=== PATIENT | male | born 1995 | race Caucasian/White ===

== ENCOUNTER 2016-12-28 10:57 | Emergency (ER) | payer OTHER ==
[~2016-12-28] VITALS: Ht 177.8 cm; Wt 74.7 kg
[2016-12-28 11:00] VITALS: TEMP 36.9; Ht 177.8 cm; Wt 74.7 kg
[2016-12-28] MEDS ORDERED: IBUP-103 PO (11:13)
--- NOTE | 2016-12-28 11:38 | DIAGNOSTIC IMAGING REPORT ---
R HAND MIN 3 VIEWS ROUTINE CLINICAL HISTORY: R hand injury trauma. Pain. COMPARISON: None. DISCUSSION: Nondisplaced fracture distal aspect of the hamate. Mild soft tissue edema. No additional acute bony abnormality. IMPRESSION: Nondisplaced cortical fracture distal hamate. The above report was generated using voice recognition software. It may contain grammatical, syntax or spelling errors. Electronically signed by: Kenny Darling M.D. 12/28/2016 11:37 AM Dictated Date/Time: 12/28/2016 11:34 AM
[2016-12-28 12:08] VITALS: BP 132/77; PULSE 58; O2SAT 97
--- NOTE | 2016-12-28 18:53 | EMERGENCY ROOM VISIT NOTE ---
History First contact with patient: 11:03 Chief Complaint: HAND PAIN/INJURY Stated Complaint: SWELLING/THROBBING IN RIGHT HAND History of Present Illness The patient is a 21 year old male who presents to the Emergency Room with complaints of swelling and pain of the right hand after punching a door 3 nights ago. The patient elected to come to the emergency department to rule out fracture. He rates his discomfort a 4 out of 10, and is right-hand- dominant. He currently denies any pain extending into the wrist or forearm. Review of Systems 10 system review was performed and was negative except for pertinent positives and negatives as indicated in history of present illness Past Medical/Surgical History Medical Problems: (1) No significant past medical history Surgical Problems: (1) No history of previous surgery Family History No significant family history Social History Smoking Status: Never Smoker Alcohol Use: occasionally Marital Status: single Housing Status: lives with friends Occupation Status: [employer] student Current/Historical Medications Scheduled PRN Ibuprofen Tab (Advil), 800 MG PO Q4-5H PRN for Pain Physical Exam Vital Signs Date Time Temp Pulse Resp B/P (MAP) Pulse Ox O2 Delivery O2 Flow Rate FiO2 12/28/16 12:08 58 18 132/77 97 12/28/16 11:00 36.9 68 18 132/62 95 Room Air Physical Exam CONSTITUTIONAL: Healthy and well nourished. Alert and oriented X 3 with positive affect. HEENT: Normocephalic, atraumatic. Pupils equal, round and reactive. NECK: Full active range of motion without discomfort. MUSCULOSKELETAL: Examination shows edema over the ulnar aspect of the wrist, and has tenderness to palpation at the base of the fifth metatarsal and wrist region. He has no focal tenderness over the ulnar styloid. Negative anatomic snuffbox tenderness. Capillary refill is less than 2 seconds. INTEGUMENTARY: No rash or other significant dermatologic conditions noted. NEUROLOGIC: Right hand and fingers are sensory intact. Medical Decision & Procedures ER Provider Diagnostic Interpretation: My interpretation of right hand x-rays shows a nondisplaced cortical fracture of the distal hamate. Radiologist report is as follows: R HAND MIN 3 VIEWS ROUTINE CLINICAL HISTORY: R hand injury trauma. Pain. COMPARISON: None. DISCUSSION: Nondisplaced fracture distal aspect of the hamate. Mild soft tissue edema. No additional acute bony abnormality. IMPRESSION: Nondisplaced cortical fracture distal hamate. ED Course Patient history and physical exam were performed. Nurse's notes were reviewed. Vital signs were reviewed and were normal. The patient refused any analgesics. X-rays of the right hand shows a nondisplaced cortical fracture of the distal hamate. And ulnar gutter splint was applied. Neurovascular check after splint placement was normal. She was encouraged to enter mentally apply ice and elevate the ankle for swelling. Ibuprofen and Tylenol in alternating fashion if needed for additional pain relief. The patient was instructed to follow-up with orthopedics for further reevaluation and management. The patient was happy with plan of care, voiced understanding of all discharge instructions, and rated his pain a 3 out of 10 at the conclusion of my exam. Medical Decision Blood Pressure Screening Patient's blood pressure: Normal blood pressure Impression Primary Impression: Fracture of hamate of right wrist Departure Information Referrals No Doctor, Assigned (PCP) Patient Instructions My [facility] Problem Qualifiers Primary Impression: Fracture of hamate of right wrist Encounter type: initial encounter Hamate bone location: unspecified portion of hamate Fracture type: closed Fracture alignment: nondisplaced Qualified Codes: S62.144A - Nondisplaced fracture of body of hamate [unciform] bone, right wrist, initial encounter for closed fracture
== END 2016-12-28 12:10 | disposition home or self-care (01) ==
LOC: C.EDB 10:59 → C.EDD 12:10
DX: S62.144A Nondisplaced fracture of body of hamate [unciform] bone, right wrist, initial encounter for closed fracture (principal); W22.09XA Striking against other stationary object, initial encounter

== ENCOUNTER → 2017-01-06 | Outpatient (CLI) | payer OTHER ==
[~2017-01-06] MED LIST: IBUP-103 PO
== END | disposition home or self-care (01) ==
LOC: C.RDSM 11:25
PROVIDERS: ATTEND Physical Medicine & Rehabilitation Sports Medicine
DX: S62.144A Nondisplaced fracture of body of hamate [unciform] bone, right wrist, initial encounter for closed fracture (principal); X58.XXXA Exposure to other specified factors, initial encounter

== ENCOUNTER → 2017-02-16 | Outpatient (CLI) | payer OTHER ==
--- NOTE | 2017-02-16 09:06 | DIAGNOSTIC IMAGING REPORT ---
R WRIST MIN 3 VIEWS ROUTINE CLINICAL HISTORY: Right hamate fracture COMPARISON: 01/26/2017 DISCUSSION: There is subtle cortical irregularity involving the distal medial aspect of the hamate consistent with the previously described fracture. There is no significant change in alignment. IMPRESSION: Nondisplaced hamate fracture, unchanged in alignment. Electronically signed by: Steve Nelson M.D. 02/16/2017 9:05 AM Dictated Date/Time: 02/16/2017 9:02 AM
== END | disposition home or self-care (01) ==
LOC: C.RDSM 12:18
PROVIDERS: ATTEND Physician Assistant
DX: S62.144D Nondisplaced fracture of body of hamate [unciform] bone, right wrist, subsequent encounter for fracture with routine healing (principal); X58.XXXD Exposure to other specified factors, subsequent encounter